=== PATIENT | female | born 1985 | race African-American/Black ===

== ENCOUNTER 2021-07-21 15:33 | Emergency (ER) | payer MEDICAID, SELFPAY ==
[2021-07-21 15:43] VITALS: BP 106/64; PULSE 81; RESP 15; TEMP 36.6; O2SAT 99
--- NOTE | 2021-07-21 16:40 | ED.GENADULT ---
HPI - General Adult General Chief complaint: Headache Stated complaint: headache Time Seen by Provider: 07/21/21 16:25 Source: patient Mode of arrival: ambulatory Limitations: no limitations History of Present Illness HPI narrative: Patient here for 4-day long headache. States that it actually came on just prior to her starting her period. She does not have a history of migraine, she has been treating at home with Tylenol or ibuprofen or Excedrin Migraine, all unsuccessful. She is now sensitive to light and having nausea. She denies any recent illness, no sick contacts. She is not Covid vaccinated denies any Covid exposure. Onset (ago): day(s) Associated symptoms: denies other symptoms Related Data Home Medications Medication Instructions Recorded Confirmed No Home Medications 07/21/21 07/21/21 Allergies Allergy/AdvReac Type Severity Reaction Status Date / Time No Known Allergies Allergy Verified 07/21/21 15:56 Review of Systems Review of Systems: All systems reviewed & are unremarkable except as noted in HPI and below [facility] Social History Social History (Updated 07/21/21 @ 16:48 by Thania Dillon PA-C) Smoking status: Never smoker Alcohol intake: never Substance use: never Exam Const: General: healthy appearing, no acute distress and alert Orientation/consciousness: patient oriented x3 HENMT: Head: normal to inspection Eyes: Conjunctivae: conjunctivae normal Pupils: Equal, round and reactive pupils present EOM: EOMs intact bilaterally Direct Ophthalmoscopy: photophobia Resp: Effort & Inspection: normal respiratory effort Auscultation: clear to auscultation bilaterally Cardio: Rate: regular rate Rhythm: regular rhythm GI: GI Palp: Yes Soft to palpation Skin: General skin exam: normal color Extrem: General: normal to inspection Psych: Mental Status: mental status grossly normal Course Course Emergency Course: Patient is feeling much better after migraine cocktail and hydration. Will be ready to go at the end of her IV fluids. Vital Signs Vital signs: Vital Signs Temperature 36.6 C 07/21/21 15:43 Pulse Rate 81 07/21/21 15:43 Respiratory Rate 15 07/21/21 15:43 Blood Pressure 106/64 07/21/21 15:43 Pulse Oximetry 99 07/21/21 15:43 Temperature 36.6 C 07/21/21 15:43 Pulse Rate 81 07/21/21 15:43 Respiratory Rate 15 07/21/21 15:43 Blood Pressure 106/64 07/21/21 15:43 Pulse Oximetry 99 07/21/21 15:43 Medical Decision Making Vital Signs Vital Signs: Vital Signs Temperature 36.6 C 07/21/21 15:43 Pulse Rate 81 07/21/21 15:43 Respiratory Rate 15 07/21/21 15:43 Blood Pressure 106/64 07/21/21 15:43 Pulse Oximetry 99 07/21/21 15:43 Temperature 36.6 C 07/21/21 15:43 Pulse Rate 81 07/21/21 15:43 Respiratory Rate 15 07/21/21 15:43 Blood Pressure 106/64 07/21/21 15:43 Pulse Oximetry 99 07/21/21 15:43 Discharge Plan Discharge Clinical Impression: Headache, menstrual migraine Qualifiers: Status migrainosus presence: with status migrainosus Intractability: not intractable Qualified Code(s): G43.821 - Menstrual migraine, not intractable, with status migrainosus Patient Disposition: Home, Self-Care Condition: Improved Instructions: Antibiotic Form, Migraine Headache (ED) Additional Instructions: Continue to treat with ibuprofen or Tylenol as needed. Speak with your coffee sampler regarding possibility of this reoccurring. Return to the emergency room should you have intractable headache, vomiting, vision changes. Prescriptions: No Action No Home Medications RF: 0 Follow-up/Referrals: UNKNOWN,DOCTOR [Primary Care Provider] - Time of Disposition: 18:29
[2021-07-21] MEDS: KETOROLAC 30 MG/ML VIAL (*BKC) IV PUSH (17:19)
[2021-07-21] MEDS: SODIUM CHLORIDE 0.9% IV 1,000 ML 999 ML IV CONT (17:19)
[2021-07-21] MEDS: METOCLOPRAMIDE HCL INJ 10 MG/2 ML VIAL IV PUSH (17:20)
[2021-07-21] MEDS: diphenhydrAMINE HCl INJ 50 MG/ML VIAL IV PUSH (17:20)
[2021-07-21 18:52] VITALS: BP 104/67; PULSE 72; RESP 16; TEMP 37.1; O2SAT 100
== END 2021-07-21 18:54 | disposition home or self-care (01) ==
PROVIDERS: Emergency Provider Emergency Medicine
DX: G43.821 Menstrual migraine, not intractable, with status migrainosus (principal)
CPT/HCPCS: 96361; 96374; 96375; 99284; J1200; J1885; J2765; J7030

== ENCOUNTER 2021-07-27 17:53 | Emergency (ER) | payer MEDICAID, SELFPAY ==
[2021-07-27 18:09] VITALS: BP 109/65; PULSE 72; RESP 14; TEMP 36.3; O2SAT 100
--- NOTE | 2021-07-27 21:34 | PC.NURSE ---
no answer at triage
== END 2021-07-28 05:13 | disposition left against medical advice (07) ==
DX: R51.9 Headache, unspecified (principal)
CPT/HCPCS: 99199